=== PATIENT | female | born 1965 | race Caucasian/White ===

== ENCOUNTER 2018-07-22 13:30 | Emergency (ER) | payer OTHER, SELFPAY ==
[2018-07-22] MEDS ORDERED: ALBUTEROL 2.5 MG/3 ML NEB SOL ONE (13:53)
[2018-07-22] MEDS ORDERED: METHYLPREDNISOLONE 125 MG INJ ONE (13:53)
[2018-07-22] MEDS ORDERED: DIPHENHYDRAMINE 50 MG/ML VIAL ONE (13:54)
[2018-07-22 13:59] LABS: Absolute Lymphocytes (CBC) 1.9 K/uL (0.7-4.9); Absolute Neutrophil 7.1 K/uL (1.8-8.0); Basophils % 0.8 % (0-1.3); Eosinophils % 1.3 % (0-4.4); Hematocrit 40.5 % (36.0-45.0); Lymphocytes % 18.4 % (15.3-44.8); MPV 8.4 fL (7.6-11.3); Monocytes % 10.1 % (3.3-12.3); RBC Red Blood Cell Count 3.97 M/uL (3.86-4.86)
[2018-07-22 14:07] LABS: Protime INR 1.07
[2018-07-22 14:13] LABS: Urine Blood TRACE (NEG); Urine Glucose NEGATIVE (NEG); Urine Protein NEGATIVE (NEG)
[2018-07-22] MEDS ORDERED: LORazepam 2 MG/ML VIAL ONE (14:21)
[2018-07-22 14:22] LABS: ALT/SGPT 47 U/L (12-78); AST/SGOT 68 U/L (15-37); Albumin 3.5 g/dL (3.4-5.0); Alkaline Phosphatase 169 U/L (45-117); BUN Blood Urea Nitrogen 6 mg/dL (7-18); Bicarbonate 28 mmol/L (21-32); Bilirubin Direct 0.2 mg/dL (0-0.2); Bilirubin Total 0.5 mg/dL (0.2-1.0); Glucose Level 114 mg/dL (74-106); Potassium 3.9 mmol/L (3.5-5.1); Protein, Total 7.6 g/dL (6.4-8.2); Sodium Level 140 mmol/L (136-145)
[2018-07-22 14:31] LABS: Barbiturates NEGATIVE (NEGATIVE); Benzodiazepines NEGATIVE (NEGATIVE); Cocaine NEGATIVE (NEGATIVE); METHAMPHETAM NEGATIVE (NEGATIVE); Methadone POSITIVE (NEGATIVE); Opiates NEGATIVE (NEGATIVE); Phencyclidine NEGATIVE (NEGATIVE); THC Cannibis NEGATIVE (NEGATIVE)
[2018-07-22] MEDS ORDERED: NA CHLORIDE 0.9% 1,000 ML ONE (14:54)
--- NOTE | 2018-07-22 15:45 | EDPHYS ---
Physician Documentation [facility] Name: Dawn Funk Age: 52 yrs Sex: Female : 1965 Arrival Date: 07/22/2018 Time: 13:34 Bed 17 Private MD: ED Physician Beau Roa HPI: 07/22 13:34 This 52 yrs old Female presents to ER via Unassigned with complaints of cp medication reaction. 13:34 The patient presents with restlessness, shortness of breath. Onset: The cp symptoms/episode began/occurred today. Possible causes: took friend's "Suboxone" for energy. At home the patient or guardian has treated the symptoms with nothing. 13:35 Associated signs and symptoms: Pertinent positives: nausea, vomiting, Pertinent cp negatives: abdominal pain, chest pain, fever, shortness of breath, Syncope. Severity of symptoms: in the emergency department the symptoms have improved mildly. Historical: - Allergies: 13:37 No Known Allergies; em - Home Meds: 13:37 Methadone Oral [Active]; em - PMHx: 13:37 None; em - PSHx: 13:37 None; em - Immunization history:: Adult Immunizations up to date. - Social history:: Smoking status: unknown. - Ebola Screening: : Patient negative for fever greater than or equal to 101.5 degrees Fahrenheit, and additional compatible Ebola Virus Disease symptoms Patient denies exposure to infectious person Patient denies travel to an Ebola-affected area in the 21 days before illness onset No symptoms or risks identified at this time. ROS: 13:40 Constitutional: Negative for body aches, chills, fever, poor PO intake. cp 13:40 Eyes: Negative for injury, pain, redness, and discharge. cp 13:40 ENT: Negative for drainage from ear(s), ear pain, sore throat, difficulty swallowing, difficulty handling secretions. 13:40 Cardiovascular: Negative for chest pain, edema, palpitations. 13:40 Respiratory: Negative for cough, shortness of breath, wheezing. 13:40 Abdomen/GI: Positive for nausea, vomiting, Negative for abdominal pain, constipation, black/tarry stool, rectal bleeding. 13:40 Back: Negative for pain at rest, pain with movement. 13:40 : Negative for urinary symptoms. 13:40 Neuro: Negative for altered mental status, headache, speech changes, syncope, weakness. 13:40 Psych: Negative for auditory hallucinations, visual hallucinations, suicidal ideation. 13:40 All other systems are negative. Exam: 13:55 Constitutional: The patient appears in no acute distress, alert, awake, cp non-diaphoretic, non-toxic, well developed, well nourished, restless. 13:55 Head/Face: Normocephalic, atraumatic. cp 13:55 Eyes: Periorbital structures: appear normal, Pupils: equal, round, and reactive to light and accomodation, Extraocular movements: intact throughout, Conjunctiva: normal, no exudate, no injection, Sclera: no appreciated abnormality, Lids and lashes: appear normal, bilaterally. 13:55 ENT: External ear(s): are unremarkable, Ear canal(s): are normal, clear, TM's: bulging, is not appreciated, bilaterally, dullness, bilaterally, erythema, is not appreciated, bilaterally, Nose: is normal, Mouth: Lips: moist, Oral mucosa: pink and intact, moist, Posterior pharynx: is normal, airway is patent, no erythema, no exudate. 13:55 Neck: External neck: is normal, ROM/movement: is normal, is supple, without pain, no range of motions limitations, no meningismus, no nuchal rigidity. 13:55 Chest/axilla: Inspection: normal, Palpation: is normal, no crepitus, no tenderness. 13:55 Cardiovascular: Rate: normal, Rhythm: regular, Edema: is not appreciated, JVD: is not appreciated. 13:55 Respiratory: the patient does not display signs of respiratory distress, Respirations: normal, no use of accessory muscles, no retractions, no splinting, no tachypnea, labored breathing, is not present, Breath sounds: are clear throughout, no decreased breath sounds, no stridor, no wheezing. 13:55 Abdomen/GI: Inspection: abdomen appears normal, Palpation: abdomen is soft and non-tender, in all quadrants, rebound tenderness, is not appreciated, voluntary guarding, is not appreciated, involuntary guarding, is not appreciated. 13:55 Back: pain, is absent, ROM is normal. 13:55 Skin: no rash present. 13:55 Neuro: Orientation: to person, place \\T\\ time. Mentation: is normal, Cerebellar function: is grossly normal, Motor: moves all fours, strength is normal, Sensation: is normal. 13:55 Psych: Behavior/mood is anxious, Affect is animated, Patient has no thoughts/intents to harm self or others. Delusions/hallucinations are not present. 16:01 ECG was reviewed by the Attending Physician. cp 18:28 ECG was reviewed by the Attending Physician. cp Vital Signs: 13:37 BP 120 / 70; Pulse 88; Resp 20; Temp 98.6(O); Pulse Ox 97% on R/A; Weight 92.99 kg; em Height 5 ft. 4 in. (162.56 cm); 14:30 BP 115 / 80; Pulse 82; Resp 18; Temp 97.9(TE); Pulse Ox 95% ; mh5 16:05 BP 123 / 85; Pulse 92; Resp 18; Temp 98.2(TE); Pulse Ox 95% on R/A; mh5 17:04 BP 123 / 85; Pulse 79; Resp 18; Pulse Ox 98% on R/A; Pain 6/10; em 18:10 BP 121 / 81; Pulse 81; Resp 18; Pulse Ox 99% on R/A; em 13:37 Body Mass Index 35.19 (92.99 kg, 162.56 cm) em MDM: 13:38 Patient medically screened. cp 19:07 Data reviewed: vital signs, nurses notes, lab test result(s), EKG, I have discussed the cp patient's presentation/case with the attending Emergency Department Physician; and as a result, I will discharge patient. 19:07 Differential diagnosis: anaphylaxis, illegal drug use, acute KS. Test interpretation: cp by ED physician or midlevel provider: ECG. Counseling: I had a detailed discussion with the patient and/or guardian regarding: the historical points, exam findings, and any diagnostic results supporting the discharge/admit diagnosis, lab results, the need for outpatient follow up, a family practitioner, to return to the emergency department if symptoms worsen or persist or if there are any questions or concerns that arise at home. 19:08 Response to treatment: the patient's symptoms have markedly improved after treatment, cp VSS. Patient reports symptoms improved, and as a result, I will discharge patient. 07/22 13:36 Order name: Acetaminophen cp 07/22 13:36 Order name: Basic Metabolic Panel cp 07/22 13:36 Order name: CBC with Diff cp 07/22 13:36 Order name: ETOH Level cp 07/22 13:36 Order name: Hepatic Function cp 07/22 13:36 Order name: PT-INR; Complete Time: 14:35 cp 07/22 14:35 Interpretation: Reviewed. cp 07/22 13:36 Order name: Ptt, Activated; Complete Time: 14:35 cp 07/22 13:36 Order name: Salicylate; Complete Time: 14:35 cp 07/22 13:36 Order name: Urine Drug Screen; Complete Time: 14:35 cp 07/22 15:42 Interpretation: Normal except: METH POSITIVE. cp 07/22 13:37 Order name: Acetaminophen Level; Complete Time: 17:28 EDMS 07/22 13:37 Order name: Basic Metabolic Panel; Complete Time: 17:28 EDMS 07/22 14:36 Interpretation: Normal except: GLUC 114; BUN 6; GFR 83. cp 07/22 13:37 Order name: CBC with Automated Diff; Complete Time: 14:35 EDMS 07/22 15:43 Interpretation: Normal except: MCV 102.0. cp 07/22 13:37 Order name: Alcohol Serum/Plasma; Complete Time: 14:35 EDMS 07/22 13:37 Order name: Liver (Hepatic) Function; Complete Time: 17:28 EDMS 07/22 15:43 Interpretation: Normal except: AST 68; ALK 169; GLOB 4.1; A/G 0.9. 07/22 13:36 Order name: EKG; Complete Time: 13:38 cp 07/22 14:09 Order name: Urine Dipstick--Ancillary (enter results); Complete Time: 14:35 ms 07/22 14:09 Order name: Urine --Ancillary (enter results); Complete Time: 14:35 ms 07/22 16:07 Order name: Troponin I; Complete Time: 17:28 EDMS 07/22 17:47 Order name: Troponin (emerg Dept Use Only) 07/22 18:06 Order name: EKG; Complete Time: 18:08 cp 07/22 13:36 Order name: Urine Test (obtain specimen); Complete Time: 14:28 cp 07/22 13:36 Order name: EKG - Nurse/Tech; Complete Time: 17:07 07/22 13:36 Order name: IV Saline Lock; Complete Time: 14:28 cp 07/22 13:36 Order name: Labs collected and sent; Complete Time: 14:28 cp 07/22 13:36 Order name: Urine Dipstick-Ancillary (obtain specimen); Complete Time: 14:28 cp 07/22 18:06 Order name: EKG - Nurse/Tech; Complete Time: 18:24 cp EC:01 Rate is 84 beats/min. Rhythm is regular. IL interval is normal. QRS interval is cp prolonged at 102 msec. QT interval is normal. T waves are Inverted in leads V2, V3, V4, V5, V6. Interpreted by me. Reviewed by me. 18:28 Rate is 74 beats/min. Rhythm is regular. IL interval is normal. QRS interval is cp prolonged at 102 msec. QT interval is prolonged at 436 msec. T waves are Inverted in leads V3, V4, V5. Interpreted by me. Reviewed by me. Administered Medications: 13:36 Drug: Albuterol 2.5 mg Route: Inhalation; em 14:22 Follow up: Response: No adverse reaction em 13:45 Drug: Benadryl 50 mg Route: IVP; Site: left antecubital; iw 14:22 Follow up: Response: No adverse reaction em 13:45 Drug: SOLU-Medrol 125 mg Route: IVP; Site: left antecubital; iw 14:22 Follow up: Response: No adverse reaction em 14:08 Drug: Ativan 0.5 mg Route: IVP; Site: left antecubital; iw 14:22 Follow up: Response: No adverse reaction; Anxiety unchanged em 14:22 Drug: Ativan 0.5 mg Route: IVP; Site: left antecubital; em 14:50 Follow up: Response: No adverse reaction; Marked relief of symptoms em 14:49 Drug: NS 0.9% 1000 ml Route: IV; Rate: 1 bolus; Site: right antecubital; em 17:01 Follow up: IV Status: Completed infusion; IV Intake: 1000ml em 14:49 Not Given (Physician Discretion): Geodon 10 mg IM once cp 15:32 Drug: Ativan 1 mg Route: IM; Site: right deltoid; em 15:55 Follow up: Response: No adverse reaction; Marked relief of symptoms em 16:10 Drug: Aspirin Chewable Tablet 324 mg Route: PO; em 17:01 Follow up: Response: No adverse reaction em 17:02 Drug: Ibuprofen 600 mg Route: PO; em 18:24 Follow up: Response: No adverse reaction em Disposition: 07/23 12:51 Co-signature as Attending Physician, Beau Roa MD. gs Disposition: 07/22/18 19:08 Discharged to Home. Impression: Adverse effect of amphetamines. - Condition is Stable. - Discharge Instructions: Stimulant Use Disorder-Methamphetamines. - Prescriptions for Zofran 4 mg Oral Tablet - take 1 tablet by ORAL route every 12 hours As needed; 20 tablet. - Medication Reconciliation Form, Thank You Letter, Antibiotic Education, Prescription Opioid Use form. - Follow up: Private Physician; When: 2 - 3 days; Reason: Recheck today's complaints. - Problem is new. - Symptoms have improved. Signatures: Dispatcher [employer] EDMS Tristan Rodriguez, IRRIGATION FOREMAN IRRIGATION FOREMAN em Sahra Love RN RN Anuja Otto RN RN ed1 Ivan Noriega PA PA cp Beau Roa MD MD Corrections: (The following items were deleted from the chart) 07/22 15:59 15:44 07/22/2018 15:44 Discharged to Home. Impression: Adverse effect of amphetamines. cp Condition is Stable. Forms are Medication Reconciliation Form, Thank You Letter, Antibiotic Education, Prescription Opioid Use. Follow up: Emergency Department; When: As needed; Reason: Worsening of condition. Problem is new. Symptoms have improved. cp 19:24 19:08 07/22/2018 19:08 Discharged to Home. Impression: Adverse effect of amphetamines. ed1 Condition is Stable. Prescriptions for Zofran 4 mg Oral Tablet - take 1 tablet by ORAL route every 12 hours As needed; 20 tablet. and Forms are Medication Reconciliation Form, Thank You Letter, Antibiotic Education, Prescription Opioid Use. Follow up: Private Physician; When: 2 - 3 days; Reason: Recheck today's complaints. Problem is new. Symptoms have improved. cp
--- NOTE | 2018-07-22 15:45 | ER ---
Nurse's Notes [facility] Name: Dawn Funk Age: 52 yrs Sex: Female : 1965 Arrival Date: 07/22/2018 Time: 13:34 Bed 17 Private MD: Diagnosis: Adverse effect of amphetamines Presentation: 07/22 13:34 Presenting complaint: EMS states: called out for N/V after taking Suboxone for energy, em takes methadone. Transition of care: patient was not received from another setting of care. Onset of symptoms was July 22, 2018. Risk Assessment: Do you want to hurt yourself or someone else? Patient reports no desire to harm self or others. Initial Sepsis Screen: Does the patient meet any 2 criteria? No. Patient's initial sepsis screen is negative. Does the patient have a suspected source of infection? No. Patient's initial sepsis screen is negative. Care prior to arrival: Medication(s) given: Normal saline infusion, 500 mL, zofran 4 mg. 13:34 Method Of Arrival: EMS: [facility] em 13:37 Acuity: KRYSTAL 3 iw Historical: - Allergies: 13:37 No Known Allergies; em - Home Meds: 13:37 Methadone Oral [Active]; em - PMHx: 13:37 None; em - PSHx: 13:37 None; em - Immunization history:: Adult Immunizations up to date. - Social history:: Smoking status: unknown. - Ebola Screening: : Patient negative for fever greater than or equal to 101.5 degrees Fahrenheit, and additional compatible Ebola Virus Disease symptoms Patient denies exposure to infectious person Patient denies travel to an Ebola-affected area in the 21 days before illness onset No symptoms or risks identified at this time. Screenin:37 Abuse screen: Denies threats or abuse. Nutritional screening: No deficits noted. iw Tuberculosis screening: No symptoms or risk factors identified. Fall Risk IV access (20 points). Ambulatory Aid- Gait- Impaired (20 pts.). Total Myles Fall Scale indicates Low Risk Score (25-44 pts). Fall prevention measures have been instituted. Side Rails Up X 2 Placed close to Nursing Station Frequent Obs/Assesments occuring. Assessment: 13:37 General: Appears uncomfortable, Behavior is cooperative, anxious, restless. Pain: em Complains of pain in joints Pain currently is 6 out of 10 on a pain scale. Neuro: Level of Consciousness is awake, alert, obeys commands, Oriented to person, place, time, situation. Cardiovascular: Capillary refill < 3 seconds Patient's skin is warm and dry. Respiratory: Airway is patent Respiratory effort is even, unlabored, Respiratory pattern is regular, symmetrical. GI: Reports nausea, vomiting. Derm: Skin is intact, is healthy with good turgor, Skin is pink, warm \T\ dry. Musculoskeletal: uncontrollable movements, reports medication making her do it. 14:08 Reassessment: received order for medication to anxiety and restlessness. em 14:22 Reassessment: received verbal order for repeat 0.5 mg IV Ativan. em 15:40 Reassessment: Patient appears in no apparent distress at this time. Patient and/or em family updated on plan of care and expected duration. Pain level reassessed. Patient is alert, oriented x 3, equal unlabored respirations, skin warm/dry/pink. ambulated to use phone at the nurse station with steady gait, sitter next to pt Patient states symptoms have improved. 16:53 Reassessment: Patient appears in no apparent distress at this time. Patient and/or em family updated on plan of care and expected duration. Pain level reassessed. Patient is alert, oriented x 3, equal unlabored respirations, skin warm/dry/pink. reports she wants something for her chronic hip pain, provider notified, new medication orders received Patient states feeling better. 18:10 Reassessment: Patient appears in no apparent distress at this time. Patient and/or em family updated on plan of care and expected duration. Pain level reassessed. Patient is alert, oriented x 3, equal unlabored respirations, skin warm/dry/pink. repeat trop. sent to lab, repeat EKG. 19:23 Reassessment: Patient appears in no apparent distress at this time. Patient and/or ed1 family updated on plan of care and expected duration. Pain level reassessed. Patient is alert, oriented x 3, equal unlabored respirations, skin warm/dry/pink. Patient denies pain at this time. Vital Signs: 13:37 BP 120 / 70; Pulse 88; Resp 20; Temp 98.6(O); Pulse Ox 97% on R/A; Weight 92.99 kg; em Height 5 ft. 4 in. (162.56 cm); 14:30 BP 115 / 80; Pulse 82; Resp 18; Temp 97.9(TE); Pulse Ox 95% ; mh5 16:05 BP 123 / 85; Pulse 92; Resp 18; Temp 98.2(TE); Pulse Ox 95% on R/A; mh5 17:04 BP 123 / 85; Pulse 79; Resp 18; Pulse Ox 98% on R/A; Pain 6/10; em 18:10 BP 121 / 81; Pulse 81; Resp 18; Pulse Ox 99% on R/A; em 13:37 Body Mass Index 35.19 (92.99 kg, 162.56 cm) em ED Course: 13:30 Patient has correct armband on for positive identification. Bed in low position. Call mh5 light in reach. SITTER. 13:33 Ivan Noriega PA is PHCP. cp 13:33 Beau Roa MD is Attending Physician. cp 13:34 Patient arrived in ED. em 13:37 Triage completed. iw 13:37 Arm band placed on. em 13:37 Maintain EMS IV. Dressing intact. Good blood return noted. Site clean \T\ dry. Gauge \T\ iw site: 18 LAC. 13:54 Tristan Rodriguez LVN is Primary Nurse. em 15:58 IV discontinued, Pressure dressing applied. [facility] 16:00 Urine collected: clean catch specimen, clear, Amount Voided: 200mL EKG done, by ED 5 staff, reviewed by Ivan GONZALES. 19:08 Primary Nurse role handed off by Tristan Rodriguez LVN ed1 19:08 Anuja Otto, DASH is Primary Nurse. ed1 19:23 No provider procedures requiring assistance completed. ed1 Administered Medications: 13:36 Drug: Albuterol 2.5 mg Route: Inhalation; em 14:22 Follow up: Response: No adverse reaction em 13:45 Drug: Benadryl 50 mg Route: IVP; Site: left antecubital; iw 14:22 Follow up: Response: No adverse reaction em 13:45 Drug: SOLU-Medrol 125 mg Route: IVP; Site: left antecubital; iw 14:22 Follow up: Response: No adverse reaction em 14:08 Drug: Ativan 0.5 mg Route: IVP; Site: left antecubital; iw 14:22 Follow up: Response: No adverse reaction; Anxiety unchanged em 14:22 Drug: Ativan 0.5 mg Route: IVP; Site: left antecubital; em 14:50 Follow up: Response: No adverse reaction; Marked relief of symptoms em 14:49 Drug: NS 0.9% 1000 ml Route: IV; Rate: 1 bolus; Site: right antecubital; em 17:01 Follow up: IV Status: Completed infusion; IV Intake: 1000ml em 14:49 Not Given (Physician Discretion): Geodon 10 mg IM once cp 15:32 Drug: Ativan 1 mg Route: IM; Site: right deltoid; em 15:55 Follow up: Response: No adverse reaction; Marked relief of symptoms em 16:10 Drug: Aspirin Chewable Tablet 324 mg Route: PO; em 17:01 Follow up: Response: No adverse reaction em 17:02 Drug: Ibuprofen 600 mg Route: PO; em 18:24 Follow up: Response: No adverse reaction em Intake: 17:01 IV: 1000ml; Total: 1000ml. em Outcome: 15:44 Discharge ordered by MD. cp 19:08 Discharge ordered by MD. cp 19:23 Discharged to home ambulatory, with family. ed1 19:23 Condition: good 19:23 Discharge instructions given to patient, Instructed on discharge instructions, follow up and referral plans. medication usage, Demonstrated understanding of instructions, follow-up care, medications, Prescriptions given X 1. 19:24 Patient left the ED. ed1 Signatures: Tristan Rodriguez LVN SHEET METAL LAYOUT WORKER em Sahra Love RN RN Anuja Otto RN RN ed1 Ivan Noriega PA PA cp Martinez, Maria [facility] Corrections: (The following items were deleted from the chart) 16:04 14:22 Reassessment: received order for medication to anxiety and restlessness em em 16:05 13:37 BP 120 / 70; Pulse 88bpm; Resp 20bpm; Pulse Ox 97% RA; 92.99 kg; Height 5 ft. 4 em in.; BMI: 35.1; em 19:17 18:35 Reassessment: em em
[2018-07-22] MEDS ORDERED: ASPIRIN 81 MG CHEWABLE TABLET ONE (16:22)
[2018-07-22 16:28] LABS: Troponin I < 0.02 ng/mL (0.0-0.045)
[2018-07-22] MEDS ORDERED: IBUPROFEN 200 MG TAB PO ONE (17:15)
[2018-07-22] MEDS ORDERED: IBUPROFEN 400 MG TAB ONE (17:15)
--- NOTE | 2018-07-23 10:35 | EKG ---
Test Date: 2018-07-22 Test Time: 18:28:49 Rock Cutter: SRIDHAR MEASUREMENT RESULTS: Intervals: Rate: 74 AL: 138 QRSD: 102 QT: 436 QTc: 483 [place]: P: 57 AL: 138 QRS: 39 T: 11 INTERPRETIVE STATEMENTS: Normal sinus rhythm Incomplete right bundle branch block T wave abnormality, consider anterolateral ischemia Prolonged QT Abnormal ECG Compared to ECG 07/22/2018 15:55:37 No significant changes Electronically Signed On 07-23-18 10:35:14 CDT by Ermias Fine
--- NOTE | 2018-07-23 10:37 | EKG ---
Test Date: 2018-07-22 Test Time: 15:55:37 Payroll Administrator: SRIDHAR MEASUREMENT RESULTS: Intervals: Rate: 84 WI: 136 QRSD: 102 QT: 396 QTc: 467 [place]: P: 56 WI: 136 QRS: 52 T: -56 INTERPRETIVE STATEMENTS: Normal sinus rhythm Incomplete right bundle branch block T wave abnormality, consider inferior ischemia T wave abnormality, consider anterolateral ischemia Prolonged QT Abnormal ECG No previous ECG available for comparison Electronically Signed On 07-23-18 10:36:14 CDT by Ermias Fine
== END 2018-07-22 19:24 | disposition home or self-care (01) ==
LOC: ER 13:30
DX: T43.625A Adverse effect of amphetamines, initial encounter (principal)
CPT/HCPCS: 36415; 80048; 80076; 80307; 80320; 80329; 81003; 81025; 84484; 85025; 85610; 85730; 93005; 96361; 96372; 96374; 96375; 99284; J2930; J7030

== ENCOUNTER 2022-03-15 13:54 | Emergency (ER) | payer SELFPAY ==
--- OUTSIDE RECORDS SUMMARY | 2022-03-15 14:07 | XMS REPORT | Continuity of Care Document ---
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 00:00:00 Test Item Value Reference Range Interpretation Comments TSH, THIRD GENERATION (test 11.800 UIU/ML code = 2821) [id number] 00:00:00 Test Item Value Reference Range Interpretation Comments TSH, THIRD GENERATION (test 11.800 UIU/ML code = 2821) FREE T4 (THYROXINE)2021-02-25 00:00:00 Test Item Value Reference Range Interpretation Comments FREE T4 (THYROXINE) (test code = 0.65 NG/DL 3) FREE T4 (THYROXINE)2021-02-25 00:00:00 Test Item Value Reference Range Interpretation Comments FREE T4 (THYROXINE) (test code = 0.65 NG/DL 2823) FREE T4 (THYROXINE)2021-02-25 00:00:00 Test Item Value Reference Range Interpretation Comments FREE T4 (THYROXINE) (test code = 0.65 NG/DL 2823)
[2022-03-15] MEDS ORDERED: KETOROLAC 30 MG/ML INJ ONE (14:56)
[2022-03-15] MEDS ORDERED: LORazepam 2 MG/ML VIAL ONE ×2 (14:56→16:16)
[2022-03-15 15:00] LABS: Absolute Lymphocytes (CBC) 1.5 K/uL (0.7-4.9); Hematocrit 38.8 % (36.0-45.0); Lymphocytes % 12.7 % (15.3-44.8); MCV 94.5 fL (80-100); MPV 8.7 fL (7.6-11.3); RBC Red Blood Cell Count 4.11 M/uL (3.86-4.86)
[2022-03-15 15:12] LABS: Potassium 3.4 mmol/L (3.5-5.1)
--- NOTE | 2022-03-15 15:53 | EDPHYS ---
Physician Documentation [facility] Name: Dawn Funk Age: 56 yrs Sex: Female : 1965 Arrival Date: 03/15/2022 Time: 13:58 Bed 17 Private MD: ED Physician Kenneth Peralta HPI: 03/15 14:41 This 56 yrs old Female presents to ER via EMS with complaints of Anxiety, Hip Pain. sp3 14:41 56-year-old female with a history of chronic pain syndrome and prior narcotic sp3 dependence who is on methadone with last dose on Tuesday 3 days ago who then went to a local pain clinic and got started on Suboxone presents to the ED with chief complaint of bilateral hip pain and anxiety stating that she "is having a reaction to the Suboxone". She is shaking up and down on the EMS stretcher vigorously with her pelvis going up and down and screaming she needs something in pain. She was placed in a room at which point I initiated my H\\T\\P. She denies any trauma, fever, URI symptoms, chest pain, shortness of breath, abdominal pain, rash, known sick contacts, illicit drug use, prescription narcotic use other than the methadone, or any other symptoms at this time on ROS.. 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 - Social history:: Smoking status: Patient reports the use of cigarette tobacco products, smokes one pack cigarettes per day. ROS: 14:44 Constitutional: Negative for fever, chills, and weight loss, Eyes: Negative for injury, sp3 pain, redness, and discharge, ENT: Negative for injury, pain, and discharge, Neck: Negative for injury, pain, and swelling, Cardiovascular: Negative for chest pain, palpitations, and edema, Respiratory: Negative for shortness of breath, cough, wheezing, and pleuritic chest pain, Abdomen/GI: Negative for abdominal pain, nausea, vomiting, diarrhea, and constipation, Back: Negative for injury and pain, Skin: Negative for injury, rash, and discoloration, Neuro: Negative for headache, weakness, numbness, tingling, and seizure, Psych: Negative for depression, anxiety, suicide ideation, homicidal ideation, and hallucinations, Allergy/Immunology: Negative for hives, rash, and allergies, Endocrine: Negative for neck swelling, polydipsia, polyuria, polyphagia, and marked weight changes. 14:44 All other systems are negative. Exam: 14:44 Constitutional: This is a well developed, well nourished patient who is awake, alert, sp3 and in no acute distress. Head/Face: Normocephalic, atraumatic. Eyes: Pupils equal round and reactive to light, extra-ocular motions intact. Lids and lashes normal. Conjunctiva and sclera are non-icteric and not injected. Cornea within normal limits. Periorbital areas with no swelling, redness, or edema. ENT: Nares patent. No nasal discharge, no septal abnormalities noted. External auditory canals are clear. Oropharynx with no redness, swelling, or masses, exudates, or evidence of obstruction, uvula midline. Mucous membranes moist. Neck: Trachea midline, no thyromegaly or masses palpated, and no cervical lymphadenopathy. Supple, full range of motion without nuchal rigidity, or vertebral point tenderness. No Meningismus. Chest/axilla: Normal chest wall appearance and motion. Nontender with no deformity. No lesions are appreciated. Cardiovascular: Regular rate and rhythm with a normal S1 and S2. No gallops, murmurs, or rubs. Normal PMI, no JVD. No pulse deficits. Respiratory: Lungs have equal breath sounds bilaterally, clear to auscultation and percussion. No rales, rhonchi or wheezes noted. No increased work of breathing, no retractions or nasal flaring. Abdomen/GI: Soft, non-tender, with normal bowel sounds. No distension or tympany. No guarding or rebound. No evidence of tenderness throughout. Skin: Warm, dry with normal turgor. Normal color with no rashes, no lesions, and no evidence of cellulitis. Neuro: Awake and alert, GCS 15, oriented to person, place, time, and situation. Cranial nerves II-XII grossly intact. Motor strength 5/5 in all extremities. Sensory grossly intact. Cerebellar exam normal. Normal gait. Psych: Awake, alert, with orientation to person, place and time. Behavior, mood, and affect are within normal limits. 14:44 Musculoskeletal/extremity: Patient has full range of motion in bilateral hips with no leg length shortening. Pelvis is stable and intact. Distal neurovascular exam is also normal.. Vital Signs: 13:55 BP 109 / 69; Pulse 80; Resp 22; Temp 97.6(O); Pulse Ox 100% on R/A; Weight 81.65 kg; db Height 5 ft. 4 in. (162.56 cm); Pain 10/10; 15:03 Pulse 80; Resp 20; Pulse Ox 99% on R/A; db 16:17 BP 119 / 84; Pulse 75; Resp 16; Pulse Ox 99% on R/A; db 13:55 Body Mass Index 30.90 (81.65 kg, 162.56 cm) db 15:03 patient moving around and hitting legs stating she is having muscle spasms. Unable to db obtain BP at this time MDM: 14:18 Patient medically screened. sp3 14:45 Data reviewed: vital signs, nurses notes. ED course: Given that she is on Suboxone, sp3 narcotics will be avoided. We will administer ketorolac and Ativan IV for generalized support and pain control. Patient will likely be discharged as long as her work-up of laboratory values is negative. I am not concerned for any critical findings including sepsis, shock, septic joint, intra-abdominal pathology, or any other concerning findings at this time.. 15:52 ED course: Laboratory values are negative. We will discharge patient home at this time..sp3 03/15 14:19 Order name: CBC with Diff; Complete Time: 15:12 sp3 03/15 14:19 Order name: BMP; Complete Time: 15:50 sp3 03/15 14:19 Order name: IV Saline Lock; Complete Time: 14:53 sp3 03/15 14:19 Order name: NPO; Complete Time: 14:53 sp3 Administered Medications: 14:55 Drug: Ketorolac 30 mg Route: IVP; Site: right antecubital; db 16:00 Follow up: Response: No adverse reaction db 14:55 Drug: Ativan (LORazepam) 2 mg Route: IVP; Site: right antecubital; db 16:00 Follow up: Response: No adverse reaction db 16:12 Drug: Ativan (LORazepam) 1 mg Route: IVP; Site: right antecubital; db 16:30 Follow up: Response: No adverse reaction db Disposition Summary: 03/15/22 15:53 Discharge Ordered Location: Home sp3 Condition: Stable sp3 Diagnosis - Chronic pain sp3 Followup: sp3 - With: Private Physician - When: As needed - Reason: Continuance of care Discharge Instructions: - Discharge Summary Sheet sp3 - Chronic Back Pain sp3 Forms: - Medication Reconciliation Form sp3 - Thank You Letter sp3 - Antibiotic Education sp3 - Prescription Opioid Use sp3 Signatures: Dispatcher [employer] EDKenneth Cabrera MD MD sp3 Jennifer Morelos RN RN db
--- NOTE | 2022-03-15 15:53 | ER ---
Nurse's Notes [facility] Name: Dawn Funk Age: 56 yrs Sex: Female : 1965 Arrival Date: 03/15/2022 Time: 13:58 Bed 17 Private MD: Diagnosis: Chronic pain Presentation: 03/15 13:55 Chief complaint: EMS states: EMS picked patient up from home with bilateral hip pain. db "reaction to subloxne" having muscle spasms and hitting self stating it is muscle spasms and rolling all over bed. Patient last used Meth on Tuesday. Coronavirus screen: Vaccine status: Patient reports being unvaccinated. Client denies travel out of the [place] in the last 14 days. At this time, the client does not indicate any symptoms associated with coronavirus-19. Ebola Screen: Patient negative for fever greater than or equal to 101.5 degrees Fahrenheit, and additional compatible Ebola Virus Disease symptoms Patient denies exposure to infectious person. Patient denies travel to an Ebola-affected area in the 21 days before illness onset. Patient positive for the following Ebola Virus Disease associated symptoms:. Initial Sepsis Screen: Does the patient meet any 2 criteria? RR > 20 per min. Yes Does the patient have a suspected source of infection? No. Patient's initial sepsis screen is negative. Risk Assessment: Do you want to hurt yourself or someone else? Patient reports no desire to harm self or others. Onset of symptoms was March 15, 2022. 13:55 Method Of Arrival: EMS: [facility] db 13:55 Acuity: KRYSTAL 2 db Triage Assessment: 14:10 General: Appears distressed, uncomfortable, Behavior is agitated, anxious. Pain: db Complains of pain in bilateral hip pain. [place] HAND: 14:10 LMP N/A - Post-menopause db Historical: - Allergies: 16:53 No Known Allergies; db - Home Meds: 14:10 Methadone Oral [Active]; db - PMHx: 16:53 Anxiety; db - Immunization history:: Adult Immunizations unknown, Client reports having NOT received the Covid vaccine. - Social history:: Smoking status: Patient reports the use of cigarette tobacco products, smokes one pack cigarettes per day. Screenin:03 [facility] ED Fall Risk Assessment (Adult) History of falling in the last 3 months, db including since admission No falls in past 3 months (0 pts) Confusion or Disorientation No (0 pts) Intoxicated or Sedated Yes (3 pts) Impaired Gait Yes (1 pt) Mobility Assist Device Used Yes (1 pt) Altered Elimination No (0 pt) Score/Fall Risk Level 3 or more points = High Risk Oriented to surroundings, Maintained a safe environment, Educated pt \\T\\ family on fall prevention, incl call for assistance when getting out of bed, Assessed \\T\\ reinforced patient's understanding of fall precautions. Abuse screen: Denies threats or abuse. Denies injuries from another. Nutritional screening: No deficits noted. Tuberculosis screening: No symptoms or risk factors identified. Assessment: 15:01 Reassessment: Patient and/or family updated on plan of care and expected duration. Pain db level reassessed. Patient is alert, oriented x 3, equal unlabored respirations, skin warm/dry/pink. SISTER AT Bedside. patient denies drug use. patient shaking in bed and states can't be still due to subloxen reaction. General: Appears uncomfortable, Behavior is agitated, anxious, restless. Pain: Complains of pain in bilat hips. Neuro: Level of Consciousness is awake, alert, obeys commands, Oriented to person, place, time, situation, Speech is normal. 16:00 Reassessment: Patient appears in no apparent distress at this time. Patient and/or db family updated on plan of care and expected duration. Pain level reassessed. Patient is alert, oriented x 3, equal unlabored respirations, skin warm/dry/pink. patient rolling in bed states "my hips hurt". Vital Signs: 13:55 BP 109 / 69; Pulse 80; Resp 22; Temp 97.6(O); Pulse Ox 100% on R/A; Weight 81.65 kg; db Height 5 ft. 4 in. (162.56 cm); Pain 10/10; 15:03 Pulse 80; Resp 20; Pulse Ox 99% on R/A; db 16:17 BP 119 / 84; Pulse 75; Resp 16; Pulse Ox 99% on R/A; db 13:55 Body Mass Index 30.90 (81.65 kg, 162.56 cm) db 15:03 patient moving around and hitting legs stating she is having muscle spasms. Unable to db obtain BP at this time Vitals: 16:17 Cardiac Rhythm Assessment Regular. db ED Course: 13:58 Patient arrived in ED. bd 14:01 Kenneth Peralta MD is Attending Physician. sp3 14:08 Jennifer Morelos, RN is Primary Nurse. db 14:10 Triage completed. db 14:13 Arm band placed on right wrist. Patient placed in an exam room. db 14:49 Inserted saline lock: 20 gauge in right antecubital area, using aseptic technique. db Blood collected. 16:17 Patient has correct armband on for positive identification. Bed in low position. Call db light in reach. Side rails up X2. Client placed on continuous cardiac and pulse oximetry monitoring. NIBP monitoring applied. Door closed. Lights dimmed. Warm blanket given. 16:17 No provider procedures requiring assistance completed. db 16:30 IV discontinued, intact, bleeding controlled, No redness/swelling at site. db Administered Medications: 14:55 Drug: Ketorolac 30 mg Route: IVP; Site: right antecubital; db 16:00 Follow up: Response: No adverse reaction db 14:55 Drug: Ativan (LORazepam) 2 mg Route: IVP; Site: right antecubital; db 16:00 Follow up: Response: No adverse reaction db 16:12 Drug: Ativan (LORazepam) 1 mg Route: IVP; Site: right antecubital; db 16:30 Follow up: Response: No adverse reaction db Medication: 16:17 VIS not applicable for this client. db Outcome: 15:53 Discharge ordered by . sp3 16:30 Discharged to home via wheelchair, with family. db 16:30 Condition: stable 16:30 Discharge instructions given to patient, family, Instructed on discharge instructions, follow up and referral plans. Demonstrated understanding of instructions, follow-up care. 16:55 Patient left the ED. db Signatures: Marlin Douglas bd Kenneth Peralta MD MD sp3 Jennifer Morelos, RN RN db
[2022-03-15 17:35] VITALS: TEMP 97.6
[2022-03-15 17:40] VITALS: O2SAT 99
[2022-03-15 17:45] VITALS: BP 119/84
== END 2022-03-15 16:55 | disposition home or self-care (01) ==
LOC: ER 13:54
DX: G89.4 Chronic pain syndrome (principal); F41.9 Anxiety disorder, unspecified; F17.210 Nicotine dependence, cigarettes, uncomplicated
CPT/HCPCS: 36415; 80048; 85025; 96374; 96375; 99284